=== PATIENT | male | born 1980 | race Caucasian/White ===

== ENCOUNTER 2019-12-29 15:39 | Outpatient (REF) | payer MEDICAID, SELFPAY ==
[2019-12-29 20:53] LABS: HCT 46.4 % (40.0-50.0); HGB 14.9 g/dL (13.5-17.5); MCH 30.2 pg (27.0-33.0); MCHC 32.1 % (32.0-36.0); MCV 94.1 fL (80-95); MPV 11.8 fL (8.0-11.0); Platelet Count 178 10^3/uL (130-400); RBC 4.93 10^6/uL (4.36-5.78); RDW 13.3 % (11.8-14.1); RDW-SD 46.1 fL; WBC 15.78 10^3/uL (4.4-10.8)
[2019-12-29 21:42] LABS: ALT 149 U/L (16-63); AST 94 U/L (15-37); Alkaline Phosphatase 75 U/L (46-116); Anion Gap 8.4 mmol/L (3-11); BUN 11 mg/dL (7-18); Bilirubin, Total 0.7 mg/dL (0.2-1.0); CO2 30.6 mmol/L (21.0-32.0); CREATININE 0.96 mg/dL (0.70-1.30); Calcium 9.9 mg/dL (8.5-10.1); Calculated LDL 111 mg/dL (<100); Chloride 102 mmol/L (98-107); Cholesterol 169 mg/dL (<200); Glucose 152 mg/dL (74-106); HDL Cholesterol 17 mg/dL (40-60); Magnesium 1.8 mg/dL (1.8-2.4); Potassium 3.7 mmol/L (3.5-5.1); Sodium 141 mmol/L (136-145); TSH (W/Ref FT4) 1.54 uIU/mL (0.36-3.74); Total Protein 8.3 g/dL (6.4-8.2); Triglyceride 206 mg/dL (<150)
[2019-12-29 21:46] LABS: COMMENT (LAB VIEW ONLY) 133.27 mg/dL; Microalb ug/mg Crea 4.8 ug/mg Cr
[2019-12-30 10:15] LABS: Absolute Basophil Count 0.04 10^3/uL (0.0-0.2); Absolute Eosinophil Count 0.39 10^3/uL (0.0-0.7); Absolute Lymphocyte Count 3.75 10^3/uL (1.2-3.4); Absolute Monocyte Count 1.15 10^3/uL (0.1-0.8); Absolute Neutrophil Count 9.85 10^3/uL (1.2-6.7); Basophils % 0.3; Eosinophils % 2.6; Immature Grans % 0.7; Lymphocytes % 24.5; Monocytes % 7.5; Neutrophils % 64.4
[2019-12-30 10:43] LABS: Diff Comment Agrees w/ Instrument; RBC Morphology Normal
== END 2019-12-29 15:59 ==
LOC: NCHCN 15:39
PROVIDERS: Visit Provider Registered Nurse
DX: D72.829 Elevated white blood cell count, unspecified (principal); E11.9 Type 2 diabetes mellitus without complications; R07.89 Other chest pain; R53.83 Other fatigue; Z13.29 Encounter for screening for other suspected endocrine disorder; E78.6 Lipoprotein deficiency
CPT/HCPCS: 80053; 80061; 85027; 82043; 82570; 83036; 83735; 84443; 85007

== ENCOUNTER 2020-01-13 15:42 | Outpatient (REF) | payer MEDICAID, SELFPAY ==
[2020-01-13 21:42] LABS: Anion Gap 7.7 mmol/L (3-11); BUN 15 mg/dL (7-18); CO2 29.3 mmol/L (21.0-32.0); CREATININE 0.98 mg/dL (0.70-1.30); Chloride 101 mmol/L (98-107); Glucose 93 mg/dL (74-106); Potassium 4.3 mmol/L (3.5-5.1); Sodium 138 mmol/L (136-145)
== END 2020-01-13 16:02 ==
LOC: NCHCN 15:42
PROVIDERS: PCP Registered Nurse; Visit Provider Registered Nurse
DX: E11.9 Type 2 diabetes mellitus without complications (principal)
CPT/HCPCS: 80048

== ENCOUNTER 2020-08-24 15:57 | Outpatient (REF) | payer MEDICAID, SELFPAY ==
[2020-08-24 21:02] LABS: ALT 96 U/L (16-63); AST 45 U/L (15-37)
[2020-08-27 10:55] LABS: Hepatitis C Ab w Rflx HCV PCR Negative (Negative)
== END 2020-08-24 15:58 | disposition home or self-care (01) ==
LOC: NCHCN 15:57
PROVIDERS: PCP Registered Nurse; Visit Provider Registered Nurse
DX: E11.9 Type 2 diabetes mellitus without complications (principal); R03.0 Elevated blood-pressure reading, without diagnosis of hypertension; Z11.59 Encounter for screening for other viral diseases
CPT/HCPCS: 86803; 84450; 84460

== ENCOUNTER 2021-05-30 13:41 | Outpatient (REF) | payer MEDICAID, SELFPAY ==
[2021-05-30 21:23] LABS: COMMENT (LAB VIEW ONLY) 215.89 mg/dL; Microalb ug/mg Crea 4.4 ug/mg Cr
[2021-05-30 21:24] LABS: ALT 49 U/L (16-63); AST 30 U/L (15-37); Albumin 4.1 g/dL (3.4-5.0); Alkaline Phosphatase 51 U/L (46-116); Anion Gap 7.8 mmol/L (3-11); BUN 13 mg/dL (7-18); Bilirubin, Total 0.8 mg/dL (0.2-1.0); CO2 27.2 mmol/L (21.0-32.0); CREATININE 0.8 mg/dL (0.70-1.30); Calcium 9.2 mg/dL (8.5-10.1); Calculated LDL 80 mg/dL (<100); Chloride 103 mmol/L (98-107); Cholesterol 139 mg/dL (<200); Glucose 84 mg/dL (74-106); HDL Cholesterol 34 mg/dL (40-60); Potassium 4.2 mmol/L (3.5-5.1); Sodium 138 mmol/L (136-145); Total Protein 8.1 g/dL (6.4-8.2); Triglyceride 129 mg/dL (<150)
== END 2021-05-30 13:42 | disposition home or self-care (01) ==
LOC: NCHCN 13:41
PROVIDERS: PCP Registered Nurse; Visit Provider Registered Nurse
DX: R03.0 Elevated blood-pressure reading, without diagnosis of hypertension (principal); E78.6 Lipoprotein deficiency; E11.9 Type 2 diabetes mellitus without complications
CPT/HCPCS: 80053; 80061; 82043; 82570

== ENCOUNTER 2021-06-28 16:00 | Outpatient (REF) | payer MEDICAID, SELFPAY ==
[2021-06-28 15:35] LABS: Anion Gap 8.7 mmol/L (3-11); BUN 15 mg/dL (7-18); CO2 29.3 mmol/L (21.0-32.0); CREATININE 0.8 mg/dL (0.70-1.30); Calcium 9.8 mg/dL (8.5-10.1); Chloride 103 mmol/L (98-107); Glucose 101 mg/dL (74-106); Potassium 4.5 mmol/L (3.5-5.1); Sodium 141 mmol/L (136-145)
== END 2021-06-28 16:01 | disposition home or self-care (01) ==
LOC: NCHCN 16:00
PROVIDERS: PCP Registered Nurse; Visit Provider Registered Nurse
DX: R03.0 Elevated blood-pressure reading, without diagnosis of hypertension (principal)
CPT/HCPCS: 80048

== ENCOUNTER 2025-04-27 18:33 | Outpatient (REF) | payer MEDICAID, SELFPAY ==
[2025-04-27 22:18] LABS: Microalb ug/mg Crea 3.8 ug/mg Cr
== END 2025-04-27 18:34 | disposition home or self-care (01) ==
LOC: NCHCN 18:33
PROVIDERS: PCP Registered Nurse; Visit Provider Physician Assistant
DX: E11.9 Type 2 diabetes mellitus without complications (principal)
CPT/HCPCS: 82043; 82570